=== PATIENT | female | born 1955 | race African-American/Black ===

== ENCOUNTER 2016-12-21 17:44 | Observation (INO) ==
[2016-12-21] MEDS ORDERED: KETOROLAC 30 MG/1 ML VIAL IM STA (18:25)
[2016-12-21] MEDS ORDERED: KETOROLAC 60 MG/2 ML VIAL IM ONE (18:42)
--- NOTE | 2016-12-21 18:44 | Emergency Department Note ---
ICirilo Mantricia, am scribing for, and in the presence of, Tiara Terrell DO 18:29. I, Tiara Terrell DO, personally performed the services described in this documentation, ascribed by Peri Kerr in my presence, and it is both accurate and complete [id number] . Arrival - Arrival Chief Complaint: Non-Specific Stated Complaint: dialysis port not working properly, bad pains in a ED Nursing Triage Note: c/o having pain in the left arm., states the pain is located at the dialysis access., states she feels like it is not working ., states the left arm is swollen and tender to the touch Mode of Arrival: Ambulatory Limitations: No Limitations Source: Patient Time Seen by Provider: 12/21/16 18:15 - History of Present Illness HPI Narrative: Pt is a 61 y/o black female arriving to ED by EMS for evaluation of pain in her LUE due to her catheter that onset yesterday. She states that she is on dialysis and has a catheter placed in her left arm. She became worried because she cannot hear it beating and it began to hurt and swell, she states. She reports that the catheter was placed by Dr. Valdes. Pt reports a similar incident once before but no pain was noted then. Pt dialyze again tomorrow. She reports no other complaints to ED. Onset (ago): hour(s) Allergies/Adverse Reactions: Allergies Allergy/AdvReac Type Severity Reaction Status Date / Time Sulfa (Sulfonamide Allergy HIVES Verified 12/21/16 17:50 Antibiotics) Home Medications: Home Medications Medication Instructions Recorded Confirmed Type Carvedilol [Coreg] 25 mg PO BID 11/04/14 12/21/16 History cloNIDine TAB [Catapres Tab] 0.1 mg PO BID 11/04/14 12/21/16 History amLODIPine [Norvasc] 10 mg PO QAM 03/14/15 12/21/16 History Dextromethorphan Polistirex 30 mg PO BID #1 bottle 07/17/16 12/21/16 Rx Cetirizine Tab [ZyrTEC Tab] 5 mg PO QAM 10/01/16 12/21/16 History Fluticasone 50 Mcg Nasal [place] 1 spray BOTH NARES QAM 12/21/16 12/21/16 History [Flonase Nasal [place]] Review of System - Review of System 12 point system: reviewed and no additional remarkable complaints except as stated - Review of System Constitutional: Absent: chills, diaphoresis, fever Eyes: Absent: discharge, pain Head/Ears/Nose/Throat: Absent: earache, epistaxis, nasal drainage Respiratory: Absent: cough, respiratory distress, wheezing Cardiovascular: Absent: chest pain, palpitations Gastrointestinal: Absent: abdominal pain, nausea, vomiting, diarrhea Genitourinary female: Absent: abnormal menses, dysuria Musculoskeletal: Present: arm pain (LUE due to catheter ). Absent: back pain, leg pain, neck pain Skin: Absent: rash, lesions Psychiatric: Absent: anxiety, depression Medical,Surgical,& Family Hx - Medical History Cardio: History of: Hypertension, [place] (5 years ago at [facility], catheterization was negative by report) Neurology: No history of: Seizures Rheumatology: History of;: Gout (past history), Rheumatoid Arthritis Renal: History of: Dialysis (thursday, thursday, thursday [facility]; dr MATA), Renal Failure (polycystic kidney disease) Gastrointestinal: History of: GI Problems (occasional nausea) Other: History of: Miscellaneous Medical Problems (LEFT AV GRAFT 08/21/15;) - Surgical History Cardiac Surgeries: Sugical HX of: Cardiac Catheterization (6-7 yrs ago) Neurologic Surgeries: Patient denies: Neurologic Surgery HEENT Surgeries: Surgical HX of: Thyroid Surgery (thyroidectomy partial) Reproductive Surgeries: Surgical HX of;: Section (x1), Tubal Ligation Orthopedic Surgeries: Patient denies;: Implanted Devices (left arm av graft) - Family History Family History: Reports;: Family Cancer (MOM COLON CANCER), Family Heart Disease (DAD [place]), Family Hypertension (DAD) - Social History Smoking Status: Never smoker Frequency of Alcohol Use: None Type of Drug Use: None Exam Vital Signs: Vital Signs Temperature 98.3 F 12/21/16 17:46 Pulse Rate 96 H 12/21/16 17:46 Respiratory Rate 16 12/21/16 17:46 Blood Pressure 178/111 12/21/16 17:46 O2 Sat by Pulse Oximetry 97 12/21/16 17:46 - General General appearance: alert, in no apparent distress, obese (morbidly ) - Head Head exam: Present: atraumatic, normocephalic, normal inspection - Eye Eye exam: Present: normal appearance, PERRL, EOMI - ENT ENT exam: Present: normal exam, normal oropharynx, mucous membranes moist, TM's normal bilaterally, normal external ear exam - Neck Neck exam: Present: normal inspection, full ROM, trachea midline. Absent: tenderness - Chest Chest inspection: Present: normal inspection, symmetric chest wall rise. Absent : tenderness - Respiratory Respiratory exam: Present: normal lung sounds bilaterally - Cardiovascular Cardiovascular exam: Present: regular rate, normal rhythm, normal heart sounds - Abdominal Exam Abdominal exam: Present: soft, normal bowel sounds. Absent: distention, tenderness, guarding, rebound - Extremities Exam Extremities exam: Present: full ROM, tenderness (mild tenderness to LUE catheter side), normal capillary refill. Absent: pedal edema - Back Exam Back exam: Present: normal inspection, full ROM. Absent: tenderness - Neurological Exam Neurological exam: Present: alert, oriented X3, CN II-XII intact, normal gait, reflexes normal - Psychiatric Psychiatric exam: Present: normal affect, normal mood - Skin Skin exam: Present: warm, dry, intact, normal color Course Course Narrative: spoke with DR Hdez for DR Sal. pt to be admitted to [facility] with consult to sx and radiology for declotting dialysis catheter Disposition Clinical Impression: AV graft thrombosis Case discussed with: patient Disposition: Still a Patient Condition: Stable Time of Disposition: 18:52
[2016-12-21] MEDS ORDERED: ACETAMINOPHEN 325 MG TABLET PO PRN (18:53)
[2016-12-21] MEDS ORDERED: HYDROmorphone 2 MG/1 ML VIAL IV PRN (18:53)
[2016-12-21] MEDS ORDERED: ONDANSETRON 4 MG/2 ML VIAL IV PRN (18:53)
--- NOTE | 2016-12-21 20:00 | Ultrasound Report ---
US venous doppler UE LT Clinical Information: access patency of dialysis access Comparison: Fistulagram 10/29/2016 Findings: Targeted u/s evaluation of the left arm AV graft demonstrates thrombus and no color flow in the graft, compatible with thrombosis. Impression: As above. PROCEDURE INTERPRETED AT [facility] DEPARTMENT OF RADIOLOGY Final Report Signed by: Willy Pickering
[2016-12-21] MEDS: DOCUSATE SODIUM 100 MG CAPSULE PO SCH (21:54)
[2016-12-22] MEDS ORDERED: PANTOPRAZOLE 40 MG TABLET PO SCH (09:00)
[2016-12-22] MEDS ORDERED: CETIRIZINE 5 MG TABLET PO SCH (09:00)
[2016-12-22] MEDS ORDERED: CARVEDILOL 25 MG TABLET PO SCH (09:00)
[2016-12-22] MEDS ORDERED: HEPARIN 1,000 UNIT/1 ML VIAL ONE (09:14)
--- NOTE | 2016-12-22 09:14 | Hospitalist History & Physical ---
<Placido Grossman - Last Filed: 12/22/16 09:03> Assessment and Plan - Time spent with patient Time spent with patient: Greater than 30 minutes (1) AV graft thrombosis Status: Acute Assessment and plan: Patient is a hemodialysis patient her last dialyzed on Thursday with no problems. Reports pain in left upper extremity. There is no thrill noted in the AV graft site. Dr. Willy Pickering, interventional radiology, has been consulted for declotting evaluation. CBC, BMP, Mg has been ordered stat. Current Visit: Yes (2) Hypertension Status: Acute Assessment and plan: Patient's last BP was 144/84. Patient has not taken her blood pressure medication today. She reports she takes Coreg, clonidine, Norvasc. Patient is currently n.p.o. however she should be allowed to take her hypertensive medications with water this morning. Current Visit: Yes (3) Polycystic kidney disease Status: Acute Assessment and plan: Patient is currently on hemodialysis for CKD secondary to polycystic kidney disease. BMP is pending. Current Visit: No History of Present Illness Chief complaint: left arm pain History of present illness: Ms. Mendez is a 61 year old -[place] female with a past medical history significant for polycystic kidney disease on hemodialysis, hypertension who presented to the emergency room on yesterday with complaints of left arm pain around her AV graft with an onset Thursday night. The patient reports that she dialyzes here [place] on Wednesdays and Fridays and was last dialyzed on Thursday. She reports that the pulled 2800 cc no complications. She states that she began feeling pain in her left arm on Thursday night which progressed through Thursday morning. She took Tylenol and Aleve with little relief. She then came to the emergency room for further treatment. Patient reports that she has been dialyzing for 2 years and has had complications with her graft in the past. She was last seen by interventional radiology approximately 1 month ago at which time a stent was placed in her graft. Patient rates the pain in her arm a 6/10 but denies any other complaints or problems at this time. Patient was erroneously admitted to the family medicine service last night. She has not yet gotten any lab work done. I will order a CBC, BMP and Mg stat prior to interventional radiology and surgery seeing her. I have spoken with Dr. Pickering, interventional radiology, who has agreed to see the patient for possible declotting of her graft. Case has been discussed with Dr. Kelly. Patient is a full code. Home Medications Medication Instructions Recorded Confirmed Type Carvedilol [Coreg] 25 mg PO BID 11/04/14 12/21/16 History cloNIDine TAB [Catapres Tab] 0.1 mg PO BID 11/04/14 12/21/16 History amLODIPine [Norvasc] 10 mg PO QAM 03/14/15 12/21/16 History Cetirizine Tab [ZyrTEC Tab] 5 mg PO QAM 10/01/16 12/21/16 History Fluticasone 50 Mcg Nasal [place] 1 spray BOTH NARES QAM 12/21/16 12/21/16 History [Flonase Nasal [place]] Allergies Allergy/AdvReac Type Severity Reaction Status Date / Time Sulfa (Sulfonamide Allergy HIVES Verified 12/21/16 17:50 Antibiotics) Medical,Surgical,& Family Hx - Medical History Cardio: History of: Hypertension, [place] (5 years ago at [facility], catheterization was negative by report) Neurology: No history of: Seizures Rheumatology: History of;: Gout (past history), Rheumatoid Arthritis Renal: History of: Dialysis (thursday, thursday, thursday [facility]; dr MATA), Renal Failure (polycystic kidney disease) Gastrointestinal: History of: GI Problems (occasional nausea) Other: History of: Miscellaneous Medical Problems (LEFT AV GRAFT 08/21/15;) - Surgical History Cardiac Surgeries: Sugical HX of: Cardiac Catheterization (6-7 yrs ago) Neurologic Surgeries: Patient denies: Neurologic Surgery HEENT Surgeries: Surgical HX of: Thyroid Surgery (thyroidectomy partial) Reproductive Surgeries: Surgical HX of;: Section (x1), Tubal Ligation Orthopedic Surgeries: Patient denies;: Implanted Devices (left arm av graft) - Family History Family History: Reports;: Family Cancer (MOM COLON CANCER), Family Heart Disease (DAD [place]), Family Hypertension (DAD) - Social History Smoking Status: Never smoker Frequency of Alcohol Use: None Type of Drug Use: None Marital Status: Single Lives With:: Alone Functional capacity: independent ambulation - Constitutional Constitutional: Absent: fever(s), headache(s), weakness - EENT Eyes: Absent: blurry vision, loss of vision Ears: Absent: decreased hearing, ear pain Nose, mouth and throat: Absent: headache(s), sore throat, vertigo - Cardiovascular Cardiovascular: Absent: chest pain at rest, diaphoresis, dyspnea - Respiratory Respiratory: Absent: cough, wheezing - Gastrointestinal Gastrointestinal: Absent: abdominal pain, diarrhea, nausea, vomiting - Genitourinary Genitourinary: Absent: difficulty urinating, flank pain - Musculoskeletal Musculoskeletal: Present: other (left arm pain) - Neurological Neurological: Absent: numbness, paresthesias - Psychiatric Psychiatric: Absent: anxiety, depression - Endocrine Endocrine: Absent: cold intolerance, fatigue, heat intolerance - Hematologic/Lymphatic Hematologic/Lymphatic: Absent: easy bleeding, easy bruising Exam - Constitutional Vitals: Period Temp Pulse Resp BP Sys/Briones Pulse Ox Last 24 Hr 97.6 F-98.5 F 86-96 14-20 119-178/84-111 96-100 Exam: General appearance: morbidly obese, no acute distress - Head Head exam: Present: normocephalic, atraumatic - Eye Eye exam: Present: EOMI. Absent: conjunctival injection, nystagmus Pupils: Present: ANTHONY, normal accommodation - ENT ENT exam: Present: normal exam, normal external ear exam - Neck Neck exam: Present: normal inspection. Absent: lymphadenopathy, tenderness, thyromegaly - Respiratory Respiratory exam: Present: clear to auscultation bilaterally. Absent: rales, rhonchi, wheezes - Cardiovascular Cardiovascular exam: Present: regular rate and rhythm. Absent: carotid bruit, gallop, rubs - GI/Abdominal GI/Abdominal exam: Present: normal bowel sounds. Absent: ascites, distended, mass - Extremities Exam Extremities exam: Present: Ecchymosis LUE, no thrill at AV graft site - Back Exam Back exam: Absent: CVA tenderness (L), CVA tenderness (R) - Neurological Exam Neurological exam: Present: alert, oriented X3 - Psychiatric Psychiatric exam: Present: normal affect, normal mood - Skin Skin exam: Present: normal color, warm, dry Results - Labs Labs: CBC, BMP and Mg are pending <Holyl Kelly - Last Filed: 12/22/16 11:45> Assessment and Plan (1) AV graft thrombosis Problem details: last intervention 10/29/2016. She has a history of multiple similar issues with graft clotting in the past. Status: Acute Current Visit : Yes (2) Hypertension Status: Acute Current Visit: Yes History of Present Illness History of present illness: Ms. Mendez is a 61 year old female seen and examined. Exam - Constitutional Vitals: Period Temp Pulse Resp BP Sys/Briones Pulse Ox Last 24 Hr 97.2 F-98.5 F 81-96 14-20 119-211/77-111 96-100 Exam: no thrill over graft Results - Labs CBC & BMP: 12/22/16 09:16 12/22/16 09:16 Lab Results: I have reviewed the past 24 hour labs - Diagnostic Findings Procedure: Ultrasound: report reviewed by me (clot in av graft )
[2016-12-22 09:23] LABS: Basophils % 0.4 % (0.0-0.8); Eosinophils # 0.3 10*3/uL (0.0-0.87); Eosinophils % 2.6 % (0.00-10.9); Hematocrit 36.6 VOL% (35.7-47.0); Hemoglobin 11.8 GM/DL (12.0-16.0); Immature Granulocytes % 0.7 %; Immature Granulocytes Absolute 0.07 #; Lymphocytes # 2.1 10*3/uL (1.4-4.0); Lymphocytes % 19.7 % (21.3-54.2); Mean Corpuscular HGB Conc 32.2 GM/DL (32-36); Mean Corpuscular Hemoglobin 30 PG (27-34); Mean Corpuscular Volume 91.7 FL (87-102); Mean Platelet Volume 11.2 FL (9.6-12.0); Monocytes # 0.8 10*3/uL (0.11-0.8); Monocytes % 7.3 % (1.7-12.7); Neutrophils # 7.4 10*3/uL (1.4-7.4); Neutrophils % 69.3 % (38.7-73.9); Platelet Count 155 T/CUMM (130-400); Red Blood Count 3.99 MC/CUMM (3.8-5.5); Red Cell Distribution Width 15.2 % (9.3-17.3); White Blood Count 10.6 T/CUMM (4-12)
--- NOTE | 2016-12-22 09:34 | IR History and Physical Update ---
IR Pre-Procedure - History and Physical H&P was reviewed, the patient examined and there: are no changes in the patients condition since last H&P was completed. Reason for procedure:: clotted left arm HD AV graft - Dictation Physical: refer to H&P completed by admitting physician - Physical Exam Vital Signs: Last Vital Signs Temp 97.6 F 12/22/16 04:00 Pulse 86 12/22/16 04:00 Resp 20 12/22/16 04:00 BP 144/84 12/22/16 04:00 Pulse Ox 96 12/22/16 04:00 Mental Status: alert and oriented Heart: regular rate and rhythm Lung: clear to auscultation Abdomen: within normal limits Extremity: other (left arm swollen, no erythema or drainage) Extremity: Present: capillary refill less than 3 seconds, warm, dry to touch - Sedation IR anesthesia plan for sedation: none ASA Class: II Airway Assessment: Class IV: Only hard palate visible - Risks Risks: Procedures explained. Risks discussed include, but not limited to, the following:[bleeding, infection, injury to vessel, need for further surgery ] All questions answered. The following alternatives were discussed:[ place HD catheter and abandon the graft] Risks and benefits discussed with: patient Consent obtained from: patient Assessment and Plan - Time spent with patient Time spent with patient: Less than 30 minutes (1) AV graft thrombosis Problem details: last intervention 10/29/2016. She has a history of multiple similar issues with graft clotting in the past. Status: Acute Assessment and plan: will decot the graft today, if unsuccessful will place HD catheter for dialysis access Current Visit: Yes (2) End stage renal disease on dialysis Problem details: HD today. D/C home afterwards. F/U outpt HD unit for routine CHD on Thursday. Status: Chronic Current Visit: No
[2016-12-22 09:58] LABS: Calcium 8.4 MG/DL (8.5-10.1); Magnesium 2.3 MG/DL (1.8-2.4); Osmolality,Calculated 294.4 MOS/KG (273-304); Potassium 4.7 MMOL/L (3.5-5.1)
--- NOTE | 2016-12-22 11:33 | Discharge Summary ---
Hospital Course - Hospital Course Hospital Course: Ms. Mendez is a 61 year old -[place] female with a past medical history significant for polycystic kidney disease on hemodialysis, hypertension who presented to the emergency room on yesterday with complaints of left arm pain around her AV graft with an onset Thursday night. The patient reports that she dialyzes here in [place] on Wednesdays and Fridays and was last dialyzed on Thursday. She reports that the pulled 2800 cc no complications. She states that she began feeling pain in her left arm on Thursday night which progressed through Thursday morning. Her graft was noted to be clotted with thrombus on venous dopplers. She has had multiple problems with this graft. IR was consulted and the graft was declotted today by Dr. Pickering. Patient will be dialyzed today and discharged home. - Time spent with patient Time with patient DS: Less than 30 minutes (15 min) Discharge Plan - Discharge Data Disposition: Disch To Home/Self Care Condition at Discharge: Stable Discharge Diet: other (esrd) Activity: resume usual activities as tolerated Hygiene: no restrictions Weight Bearing at Discharge: full weight bearing - Discharge Medications Continue Carvedilol [Coreg] 25 mg PO BID cloNIDine TAB [Catapres Tab] 0.1 mg PO BID amLODIPine [Norvasc] 10 mg PO QAM Fluticasone 50 Mcg Nasal [place] [Flonase Nasal [place]] 1 spray BOTH NARES QAM Cetirizine Tab [ZyrTEC Tab] 5 mg PO QAM Discontinued Dextromethorphan Polistirex 30 mg PO BID #1 bottle - Follow Up or Referral Follow Up: Bradley Denton MD [Physician] - (Dialysis thursday, thu, thursday ) - Forms/Instructions Additional Discharge Instructions: discharged after dialysis today. remove stitches at dialysis on thursday. Exam - Constitutional Vitals: Period Temp Pulse Resp BP Sys/Briones Pulse Ox Last 24 Hr 97.2 F-98.5 F 81-96 14-20 119-211/77-111 96-100 General appearance: no acute distress, morbidly obese Exam: see History and physical today Discharge Results Procedures and tests throughout hospitalization: Pending Orders 12/22/16 08:51 IR Dialysis declot w Stent Routine Labs on day of discharge: Labs from last 24 hours 12/22/16 12/22/16 09:16 09:16 WBC 10.6 RBC 3.99 Hgb 11.8 L Hct 36.6 MCV 91.7 MCH 30 MCHC 32.2 RDW 15.2 Plt Count 155 MPV 11.2 Neut % (Auto) 69.3 Lymph % (Auto) 19.7 L Barron % (Auto) 7.3 Eos % (Auto) 2.6 Baso % (Auto) 0.4 Neut # (Auto) 7.4 Lymph # (Auto) 2.1 Barron # (Auto) 0.8 Eos # (Auto) 0.3 Baso # (Auto) 0.0 Immature Gran % 0.7 Nucleated RBC % 0.0 Immature Gran # 0.07 Nucleated RBCs # 0.00 Sodium 140 Potassium 4.7 Chloride 101 Carbon Dioxide 24 Anion Gap 19.7 H BUN 58 H Creatinine 10.80 H GFR Calculation 5 BUN/Creatinine Ratio 5.00 L Glucose 97 Calculated Osmolality 294.4 Calcium 8.4 L Magnesium 2.3 DS: Provider Date of admission: 12/21/16 19:00 Primary care physician: Ammy Chavez Attending physician on admission: Prosper Sal MD Consults: 12/21/16 18:53 Consult to Case Mgmt/Social Srvs [CONS] Routine Reason for Case Mgmt/Social Srvs: Discharge Planning 12/21/16 18:57 Consult to Physician [CONS] Routine Comment: Consulting Provider: Yfn Valdes When should Consulting Provider be notified: In am Person Notified: MD SOLITARIO Date Notified: 12/22/16 Time Notified: 08:55 Consult Notification Comment: clogged dialysis graft 12/21/16 19:00 Consult to Case Mgmt/Social Srvs [CONS] Routine Reason for Case Mgmt/Social Srvs: Discharge Planning 12/22/16 11:29 Consult to Physician [CONS] Routine Comment: Consulting Provider: Bradley Denton Person Notified: Svetlana Date Notified: 12/22/16 Time Notified: 11:30 Consult to Physician [CONS] Routine Consulting Provider: Bradley Denton Comment: dialysis today Discharging clinician: Holly Kelly MD
[2016-12-22] MEDS: DOCUSATE SODIUM 100 MG CAPSULE PO SCH (11:35)
[2016-12-22] MEDS: FLUTICASONE 50 MCG NASAL SPRAY 16 GM BOTTLE BOTH NARES SCH ×2 (11:42→13:46)
--- NOTE | 2016-12-22 12:06 | Post Interventional Procedure ---
Pre-op diagnosis: clotted left arm AV graft Post-op diagnosis: same Procedure: declot procedure with angioplasty and stenting Contrast: 50 mL Omni 350 Flouroscopy: 7.8 min Radiologist: Willy Pickering Anesthesia: local Specimens: none sent Estimated blood loss: minimal (5 mL) Complications: none Condition: stable Description/Findings: Left arm dialysis graft is noted to be clotted. Preprocedural ultrasound performed via the ER demonstrates thrombus within the graft. Graft was accessed and pullback venogram demonstrates severe stenosis at the previously placed endovascular stent in the arm. Indwelling thrombus was macerated with heparin flush and Trerotola device. Angioplasty performed at the venous outflow with subsequent placement of a 7 x 80 mm covered fluency stent graft to straighten out the outflow. The stent graft was then angioplastied with a 7 mm balloon throughout. Final venogram demonstrates brisk drainage through the graft. Arterial anastomosis is widely patent. Patient tolerated the procedure well and left the procedure area in stable condition. 2-0 Prolene purse string sutures were placed at both puncture sites. These can be removed at the 12/24/2016 dialysis session. Assessment and Plan - Time spent with patient Time spent with patient: Less than 30 minutes (1) AV graft thrombosis Problem details: last intervention 10/29/2016. She has a history of multiple similar issues with graft clotting in the past. Status: Acute Assessment and plan: will decot the graft today, if unsuccessful will place HD catheter for dialysis access Current Visit: Yes (2) End stage renal disease on dialysis Problem details: HD today. D/C home afterwards. F/U outpt HD unit for routine CHD on Thursday. Status: Chronic Current Visit: No
--- NOTE | 2016-12-22 12:14 | Nephrology Consult Note ---
History of Present Illness Chief complaint: Clotted AV access History of present illness: Ms. Mendez is a 61 year old female with end-stage renal disease who dialyzes on a Thursdayidian. The patient presented to the dialysis clinic today for hemodialysis but was found to be clotted in her left arm. She is subsequently transferred to the hospital here for further evaluation and treatment. The patient had a declot of her arm done successfully today she also required a stent. The patient stated she had some occasional chest pain last night and this morning. She describes it as lasting a little more than 5 seconds and comes and goes. She denies any associated shortness of breath. She does have a history of some heart disease in the past. ROS: Head -positive headaches ENT - denies sore throat Lymphatics - denies lymphadenopathy Hematology - denies bleeding problems Heart -positive chest pain Lungs - denies shortness of breath Abdomen - denies abdominal pain Musculoskeletal - denies arthritis Skin - denies rash Neurology - denies stroke General - denies fever PE: General: in no acute distress Eyes: Pupils are round and reactive, conjunctivae are clear ENT: Nose is clear, O/P is benign Neck: Supple, no thyromegaly Lymphatics: No cervical, supraclavicular or axillary adenopathy Heart: Regular rate and rhythm, no edema Lungs: Clear to auscultation anteriorly, chest expansion symmetric Abdomen: Soft, normoactive bowel sounds, no hepatomegaly Musculoskeletal: No joint erythema or effusions or joint asymmetry Skin: Normal turgor, normal hydration, no rash Neuro/Psych: Alert and cooperative with fair insight Home Medications Medication Instructions Recorded Confirmed Type Carvedilol [Coreg] 25 mg PO BID 11/04/14 12/21/16 History cloNIDine TAB [Catapres Tab] 0.1 mg PO BID 11/04/14 12/21/16 History amLODIPine [Norvasc] 10 mg PO QAM 03/14/15 12/21/16 History Cetirizine Tab [ZyrTEC Tab] 5 mg PO QAM 10/01/16 12/21/16 History Fluticasone 50 Mcg Nasal [place] 1 spray BOTH NARES QAM 12/21/16 12/21/16 History [Flonase Nasal [place]] Allergies Allergy/AdvReac Type Severity Reaction Status Date / Time Sulfa (Sulfonamide Allergy HIVES Verified 12/21/16 17:50 Antibiotics) Medical,Surgical,& Family Hx - Medical History Cardio: History of: Hypertension, [place] (5 years ago at [place], catheterization was negative by report) Neurology: No history of: Seizures Rheumatology: History of;: Gout (past history), Rheumatoid Arthritis Renal: History of: Dialysis (thursday, thursday, thursday marivel; dr MATA), Renal Failure (polycystic kidney disease) Gastrointestinal: History of: GI Problems (occasional nausea) Other: History of: Miscellaneous Medical Problems (LEFT AV GRAFT 08/21/15;) - Surgical History Cardiac Surgeries: Sugical HX of: Cardiac Catheterization (6-7 yrs ago) Neurologic Surgeries: Patient denies: Neurologic Surgery HEENT Surgeries: Surgical HX of: Thyroid Surgery (thyroidectomy partial) Reproductive Surgeries: Surgical HX of;: Section (x1), Tubal Ligation Orthopedic Surgeries: Patient denies;: Implanted Devices (left arm av graft) - Family History Family History: Reports;: Family Cancer (MOM COLON CANCER), Family Heart Disease (DAD [place]), Family Hypertension (DAD) - Social History Smoking Status: Never smoker Frequency of Alcohol Use: None Type of Drug Use: None Exam - Vital Signs Vital signs: Period Temp Pulse Resp BP Sys/Briones Pulse Ox Last 24 Hr 97.2 F-98.5 F 81-96 14-20 119-211/77-111 96-100 Results - Labs CBC & BMP: 12/22/16 09:16 12/22/16 09:16 Assessment and Plan (1) End stage renal disease on dialysis Problem details: HD today. D/C home afterwards. F/U outpt HD unit for routine CHD on Thursday. Status: Chronic Assessment and plan: We will plan on hemodialysis today, the patient's AV access has been successfully declotted, she did require what sounds like a stent placement in this arm Current Visit: No (2) Obesity Status: Acute Current Visit: Yes (3) Chest pain Status: Acute Assessment and plan: Sounds like very atypical chest pain and unimpressive history however with her previous problems we will check a set of cardiac isoenzymes and EKG. This was discussed with Dr. Kelly. Current Visit: Yes (4) AV graft thrombosis Problem details: last intervention 10/29/2016. She has a history of multiple similar issues with graft clotting in the past. Status: Acute Assessment and plan: I agree with discharge after dialysis if patient remains stable and isoenzymes and EKG look okay. Current Visit: Yes (5) Hypertension Status: Acute Assessment and plan: We will continue her present antihypertensives Current Visit: Yes Specialty Discharge - Follow Up or Referrals Follow up with: Bradley Denton MD [Physician] - (Dialysis thursday, thu, thursday )
--- NOTE | 2016-12-22 12:16 | Interventional Radiology Rpt ---
IR Dialysis declot w Stent IR Declot Clinical Information: End stage renal disease. Thrombosed dialysis graft. Multiple prior episodes of thrombosis within the graft with subsequent initial endovascular stent placement October 29, 2016. Patient returns now with rethrombosis of the graft. Physician(s): Dr. Pickering Total number of images for the procedure: 188 Procedure: The patient was advised of the benefits, risks, and alternatives of the procedure and informed consent was obtained. A time out was performed with verification of the patient's name, MRN, site of procedure, and type of procedure to be performed. The patient was positioned in the supine position on the angiographic table. The site was prepped and draped in the usual sterile fashion. 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 2% lidocaine was used for local anesthesia. An antegrade puncture was made close to the arterial anastomosis with a micropuncture set. A glidewire was passed centrally and a 6 Maur[place] short sheath placed. A 4 [place] straight flush catheter was advanced over the wire into the central veins. A central venogram was then performed demonstrating patent, normal caliber central veins. A pull-back venogram of the venous outflow and venous anastomosis demonstrates a thrombosed left arm AV graft with the suggestion of venous outflow stenosis. Stenosis is primarily at the level of the previously placed endovascular stent with some kinking also noted. Angioplasty of the venous outflow was performed using a 7 mm x 4 cm [place] angioplasty balloon. Following angioplasty, a Trerotola device with heparin flush was used to macerate the thrombus. The graft was then accessed in a retrograde direction and an additional 6 Maur[place] short sheath placed. A Glidewire was advanced through the retrograde sheath and into the brachial artery. A Tash balloon was passed over the Glidewire into the arterial circulation, inflated and retracted under fluoroscopic guidance to disrupt the arterial plug. This was repeated 2 additional times. At this point physical exam indicated the graft was patent. A small volume fistulogram confirmed patency. An antegrade fistulogram was then performed demonstrating persistent moderate (70-75%) stenosis and kinking at the previously placed endovascular stent. A [employer] wire was reinserted through the antegrade sheath and 7 x 80 fluency stent graft was then advanced through the previously placed endovascular stent and deployed without difficulty. Subsequently, angioplasty with a 7 mm balloon was again performed throughout the needle placed stent. Repeat fistulogram demonstrates widely patent brisk drainage through the graft. A reflux fistulogram was performed demonstrating a widely patent arterial anastomosis. Given the satisfactory pressures and improved appearance of the AV graft, no further intervention was indicated. All wires, catheters, and angioplasty balloons were removed. The patient was transferred to the PRU where the sheaths will be removed using manual pressure for hemostasis. The patient tolerated the procedure well without immediate complication. The puncture site was cleansed. The sheath was secured to the skin using a sterile Tegaderm, to be removed in the PRU during recovery. EBL: <5 ml Complications: None. Total fluoroscopy time: 7.8 minutes Conclusion: 1. Successful mechanical thrombectomy of a left upper extremity dialysis AV graft. 2. Successful 7 mm covered fluency endovascular stent placement and venous angioplasty to 7 mm. PROCEDURE INTERPRETED AT [facility] DEPARTMENT OF RADIOLOGY Final Report Signed by: Willy Pickering
--- NOTE | 2016-12-22 12:18 | EKG Report ---
Stationary ECG Study [facility] Test Date: 12/22/2016 12:18:34 PM Pat Name: KATELYNN GUERRIER Department: Room: 539 Gender: F [facility] Pract[employer]er: LUIGI : 1955 Requested by: Holly Garcia Order Number: [id number] Lucy MD: NEFTALI THOMASON Intervals Rush Rate: 89 P: 55 TX: 154 QRS: 2 QRSD: 78 T: 43 QT: 352 QTc: 399 Interpretive Statements SINUS RHYTHM POSSIBLE ANTERIOR MYOCARDIAL INFARCTION, OF INDETERMINATE AGE Electronically Signed On 12-24-16 17:00:15 CDT by NEFTALI THOMASON [email or web address]
--- NOTE | 2016-12-22 13:19 | Nephrology Progress Note ---
Nephrology - PN: Subj Interval history: Patient is seen on hemodialysis, she is tolerating this well will continue her treatment unchanged. The patient does complain of a continued headache. I am going to give her an [place]. Exam (PN)-Nephrology - Vital Signs Vital signs: Period Temp Pulse Resp BP Sys/Briones Pulse Ox Last 24 Hr 97.2 F-98.5 F 81-96 14-20 119-211/77-111 96-100 - Lab 12/22/16 09:16 12/22/16 09:16 Most recent lab results Calcium 8.4 MG/DL (8.5-10.1) L 12/22/16 09:16 Magnesium 2.3 MG/DL (1.8-2.4) 12/22/16 09:16 Assessment and Plan (1) End stage renal disease on dialysis Problem details: HD today. D/C home afterwards. F/U outpt HD unit for routine CHD on Thursday. Status: Chronic Assessment and plan: We will plan on hemodialysis today, the patient's AV access has been successfully declotted, she did require what sounds like a stent placement in this arm Current Visit: No (2) Obesity Status: Acute Current Visit: Yes (3) Chest pain Status: Acute Assessment and plan: Sounds like very atypical chest pain and unimpressive history however with her previous problems we will check a set of cardiac isoenzymes and EKG. This was discussed with Dr. Kelly. Current Visit: Yes (4) AV graft thrombosis Problem details: last intervention 10/29/2016. She has a history of multiple similar issues with graft clotting in the past. Status: Acute Assessment and plan: I agree with discharge after dialysis if patient remains stable and isoenzymes and EKG look okay. Current Visit: Yes (5) Hypertension Status: Acute Assessment and plan: We will continue her present antihypertensives Current Visit: Yes Specialty Discharge - Follow Up or Referrals Follow up with: Bradley Denton MD [Physician] - (Dialysis thursday, thu, thursday )
--- NOTE | 2016-12-22 13:32 | General Surgery Consult Note ---
Assessment and Plan (1) AV graft thrombosis Problem details: last intervention 10/29/2016. She has a history of multiple similar issues with graft clotting in the past. Status: Acute Assessment and plan: Patient underwent mechanical thrombectomy with stent placement this morning. Hopefully this will provide longer patency. Discussed with the family and the patient at bedside that she will likely require intervention to gain a different access in the very near future. We will follow along and are available. Current Visit: Yes History of Present Illness Chief complaint: AV fistula thrombosis History of present illness: Ms. Mendez is a 61 year old female with end-stage renal disease secondary to polycystic kidney disease on hemodialysis Thursday was and Thursday. She had a left AV fistula placed in the upper extremity August [address] Valdes. There are no issues noted until September 2016, and since the fistula now with his fourth thromboses. Patient has undergone one surgical declot with Dr. Harkins and underwent third interventional radiology intervention today. The patient notes that she began having pain in the left upper extremity beginning Thursday which worsened since Thursday associated with loss of thrill at the fistula site. She came to the emergency department for evaluation where the thrombosis was identified. She underwent mechanical thrombectomy with stent placement this morning. The patient was beginning dialysis the time of our evaluation. Home Medications Medication Instructions Recorded Confirmed Type Carvedilol [Coreg] 25 mg PO BID 11/04/14 12/21/16 History cloNIDine TAB [Catapres Tab] 0.1 mg PO BID 11/04/14 12/21/16 History amLODIPine [Norvasc] 10 mg PO QAM 03/14/15 12/21/16 History Cetirizine Tab [ZyrTEC Tab] 5 mg PO QAM 10/01/16 12/21/16 History Fluticasone 50 Mcg Nasal [place] 1 spray BOTH NARES QAM 12/21/16 12/21/16 History [Flonase Nasal [place]] Allergies Allergy/AdvReac Type Severity Reaction Status Date / Time Sulfa (Sulfonamide Allergy HIVES Verified 12/21/16 17:50 Antibiotics) Medical,Surgical,& Family Hx - Medical History Cardio: History of: Hypertension, [place] (5 years ago at [place], catheterization was negative by report) Neurology: No history of: Seizures Rheumatology: History of;: Gout (past history), Rheumatoid Arthritis Renal: History of: Dialysis (thursday, thursday, thursday marivel; dr MATA), Renal Failure (polycystic kidney disease) Gastrointestinal: History of: GI Problems (occasional nausea) Other: History of: Miscellaneous Medical Problems (LEFT AV GRAFT 08/21/15;) - Surgical History Cardiac Surgeries: Sugical HX of: Cardiac Catheterization (6-7 yrs ago) Neurologic Surgeries: Patient denies: Neurologic Surgery HEENT Surgeries: Surgical HX of: Thyroid Surgery (thyroidectomy partial) Reproductive Surgeries: Surgical HX of;: Section (x1), Tubal Ligation Orthopedic Surgeries: Patient denies;: Implanted Devices (left arm av graft) - Family History Family History: Reports;: Family Cancer (MOM COLON CANCER), Family Heart Disease (DAD [place]), Family Hypertension (DAD) - Social History Smoking Status: Never smoker Frequency of Alcohol Use: None Type of Drug Use: None - Constitutional Constitutional: Absent: chills, fatigue, fever(s) - Cardiovascular Cardiovascular: Absent: chest pain at rest, chest pain with activity, orthopnea - Respiratory Respiratory: Absent: cough, wheezing - Gastrointestinal Gastrointestinal: Absent: abdominal pain, diarrhea, nausea, vomiting - Musculoskeletal Musculoskeletal: Absent: arthralgias Exam - Constitutional Vitals: Period Temp Pulse Resp BP Sys/Briones Pulse Ox Last 24 Hr 97.2 F-98.5 F 81-96 14-20 119-211/77-111 96-100 General appearance: no acute distress - Head Head exam: Present: normal inspection - Eye Eye exam: Absent: conjunctival injection, periorbital swelling, scleral icterus - Neck Neck exam: Present: trachea midline - Respiratory Respiratory exam: Present: clear to auscultation bilaterally - Cardiovascular Cardiovascular exam: Present: RRR - GI/Abdominal GI/Abdominal exam: Present: normal bowel sounds, soft. Absent: tenderness Results - Labs CBC & BMP: 12/22/16 09:16 12/22/16 09:16 Specialty Discharge - Follow Up or Referrals Follow up with: Bradley Denton MD [Physician] - (Dialysis thursday, thu, thursday )
[2016-12-22 13:58] LABS: Troponin I Only 0.052 NG/ML (0.00-0.045)
[2016-12-22 14:28] VITALS: BP 167/84
== END 2016-12-22 17:55 | disposition home or self-care (01) ==
LOC: N.ED 17:44 → N.EDINP 17:44 → N.5E 19:26
PROVIDERS: ADMIT Family Medicine; ATTEND Family Medicine

== ENCOUNTER 2017-05-06 12:14 | Inpatient (IN) ==
[2017-05-06] MEDS ORDERED: ASPIRIN 325 MG TABLET PO STA (12:34)
[2017-05-06] MEDS ORDERED: METOPROLOL TARTRATE 5 MG/5 ML VIAL IV STA (12:34)
[2017-05-06] MEDS ORDERED: NITROGLYCERIN 2% OINT 1 INCH/GM PACK TOP STA (12:34)
[2017-05-06] MEDS ORDERED: NITROGLYCERIN SL 0.4 MG TABLET SL PRN (12:34)
[2017-05-06 13:01] LABS: Basophils # 0.1 10*3/uL (0.0-0.2); Basophils % 0.5 % (0.0-0.8); Eosinophils # 0.3 10*3/uL (0.0-0.87); Eosinophils % 3.1 % (0.00-10.9); Hematocrit 36.9 VOL% (35.7-47.0); Hemoglobin 12.2 GM/DL (12.0-16.0); Immature Granulocytes % 0.4 %; Immature Granulocytes Absolute 0.04 #; Lymphocytes # 2.1 10*3/uL (1.4-4.0); Lymphocytes % 22.6 % (21.3-54.2); Mean Corpuscular HGB Conc 33.1 GM/DL (32-36); Mean Corpuscular Hemoglobin 29 PG (27-34); Mean Corpuscular Volume 87.4 FL (87-102); Mean Platelet Volume 12.1 FL (9.6-12.0); Monocytes # 0.4 10*3/uL (0.11-0.8); Monocytes % 4.8 % (1.7-12.7); Neutrophils # 6.3 10*3/uL (1.4-7.4); Neutrophils % 68.6 % (38.7-73.9); Platelet Count 189 T/CUMM (130-400); Red Blood Count 4.22 MC/CUMM (3.8-5.5); Red Cell Distribution Width 14.3 % (9.3-17.3); White Blood Count 9.2 T/CUMM (4-12)
[2017-05-06] MEDS ORDERED: ASPIRIN 325 MG TABLET ONE (13:01)
[2017-05-06] MEDS ORDERED: NITROGLYCERIN 2% OINT 1 INCH/GM PACK TOP ONE (13:01)
[2017-05-06 13:11] LABS: PT Patient Result 10.7 SECS
[2017-05-06 13:15] LABS: Partial Thromboplastin Time 63.9 SECS (0-40)
[2017-05-06 14:06] LABS: Alanine Aminotransferase 15 U/L (13-56); Albumin 3.3 G/DL (3.4-5.0); Alkaline Phosphatase 69 U/L (45-117); Aspartate Amino Transferase 16 U/L (0-37); Bilirubin,Total < 0.39 MG/DL (0.2-1.0); Blood Urea Nitrogen 16 MG/DL (7-18); Calcium 10.5 MG/DL (8.5-10.1); Glucose 96 MG/DL (74-106); Osmolality,Calculated 281.3 MOS/KG (273-304); Potassium 3.7 MMOL/L (3.5-5.1); Sodium 141 MMOL/L (136-145); Total Protein 7.1 G/DL (6.4-8.3)
[2017-05-06] MEDS ORDERED: NITROGLYCERIN SL 0.4 MG TABLET SL ONE (14:23)
[2017-05-06] MEDS ORDERED: ZALEPLON 5 MG CAPSULE PO PRN (15:12)
[2017-05-06] MEDS ORDERED: DOCUSATE SODIUM 100 MG CAPSULE PO PRN (15:12)
[2017-05-06] MEDS ORDERED: FLUTICASONE 50 MCG NASAL SPRAY 16 GM BOTTLE BOTH NARES PRN (15:16)
[2017-05-06] MEDS ORDERED: ENOXAPARIN 30 MG/0.3 ML SYRINGE ONE (15:38)
[2017-05-06] MEDS: ENOXAPARIN 30 MG/0.3 ML SYRINGE SUBCUT SCH (15:39)
[2017-05-06] MEDS: SUCROFERRIC OXYHYDROXIDE 1500 MG PO SCH (18:00)
[2017-05-06] MEDS: ACETAMINOPHEN 325 MG TABLET PO PRN ×2 (18:10→22:23)
[2017-05-06 19:31] LABS: Phosphorous 3.4 MG/DL (2.5-4.9)
[2017-05-06] MEDS: CARVEDILOL 25 MG TABLET PO SCH (20:38)
[2017-05-07] MEDS: CARVEDILOL 25 MG TABLET PO SCH ×2 (08:39→20:02)
[2017-05-07] MEDS: ONDANSETRON 4 MG/2 ML VIAL IV PRN (08:39)
[2017-05-07] MEDS: SUCROFERRIC OXYHYDROXIDE 1500 MG PO SCH ×3 (08:40→16:51)
[2017-05-07] MEDS: amLODIPine 10 MG TABLET PO SCH (08:40)
[2017-05-07 11:12] LABS: Risk Ratio 5.4; VLDL CHOLESTEROL 23.6 MG/DL
[2017-05-07] MEDS: hydrALAZINE 25 MG TABLET PO SCH ×2 (16:49→20:02)
[2017-05-07] MEDS: ISOSORBIDE DINITRATE 10 MG TABLET PO SCH ×2 (16:49→20:02)
[2017-05-07] MEDS: ENOXAPARIN 30 MG/0.3 ML SYRINGE SUBCUT SCH (16:50)
[2017-05-07] MEDS: ACETAMINOPHEN 325 MG TABLET PO PRN (22:09)
[2017-05-08] MEDS: ACETAMINOPHEN 325 MG TABLET PO PRN ×2 (05:07→08:56)
[2017-05-08] MEDS: ONDANSETRON 4 MG/2 ML VIAL IV PRN (05:08)
[2017-05-08 07:34] LABS: Basophils # 0.1 10*3/uL (0.0-0.2); Basophils % 0.8 % (0.0-0.8); Eosinophils # 0.3 10*3/uL (0.0-0.87); Eosinophils % 3.8 % (0.00-10.9); Hematocrit 32.9 VOL% (35.7-47.0); Hemoglobin 10.3 GM/DL (12.0-16.0); Immature Granulocytes % 0.3 %; Immature Granulocytes Absolute 0.02 #; Lymphocytes % 25.9 % (21.3-54.2); Mean Corpuscular HGB Conc 31.3 GM/DL (32-36); Mean Corpuscular Hemoglobin 29 PG (27-34); Mean Corpuscular Volume 90.9 FL (87-102); Mean Platelet Volume 13.1 FL (9.6-12.0); Monocytes # 0.6 10*3/uL (0.11-0.8); Monocytes % 8.3 % (1.7-12.7); Neutrophils # 4.7 10*3/uL (1.4-7.4); Neutrophils % 60.9 % (38.7-73.9); Platelet Count 164 T/CUMM (130-400); Red Blood Count 3.62 MC/CUMM (3.8-5.5); Red Cell Distribution Width 14.3 % (9.3-17.3); White Blood Count 7.7 T/CUMM (4-12)
[2017-05-08 07:57] LABS: Calcium 8.4 MG/DL (8.5-10.1); Magnesium 2.3 MG/DL (1.8-2.4); Osmolality,Calculated 290.1 MOS/KG (273-304); Potassium 4.4 MMOL/L (3.5-5.1)
[2017-05-08] MEDS: SUCROFERRIC OXYHYDROXIDE 1500 MG PO SCH ×3 (08:55→16:49)
[2017-05-08] MEDS: hydrALAZINE 25 MG TABLET PO SCH ×4 (08:55→20:42)
[2017-05-08] MEDS: ASPIRIN EC 81 MG TABLET PO SCH (08:55)
[2017-05-08] MEDS: CARVEDILOL 25 MG TABLET PO SCH ×2 (08:56→20:41)
[2017-05-08] MEDS: amLODIPine 10 MG TABLET PO SCH ×2 (08:56→16:49)
[2017-05-08] MEDS: ISOSORBIDE DINITRATE 10 MG TABLET PO SCH ×4 (08:56→20:41)
[2017-05-08] MEDS: ENOXAPARIN 30 MG/0.3 ML SYRINGE SUBCUT SCH (16:49)
[2017-05-09] MEDS: SUCROFERRIC OXYHYDROXIDE 1500 MG PO SCH ×2 (08:48→13:31)
[2017-05-09] MEDS: ISOSORBIDE DINITRATE 10 MG TABLET PO SCH (08:48)
[2017-05-09] MEDS: CARVEDILOL 25 MG TABLET PO SCH (08:49)
[2017-05-09] MEDS: amLODIPine 10 MG TABLET PO SCH (08:49)
[2017-05-09] MEDS: ASPIRIN EC 81 MG TABLET PO SCH (08:49)
[2017-05-09] MEDS: ACETAMINOPHEN 325 MG TABLET PO PRN (08:49)
[2017-05-09] MEDS: hydrALAZINE 25 MG TABLET PO SCH (08:53)
[2017-05-09 12:32] VITALS: BP 97/59
== END 2017-05-09 13:50 | disposition home or self-care (01) | DRG 313 ==
LOC: N.ED 12:14 → N.EDINP 14:35 → N.5E 17:31
PROVIDERS: ADMIT Internal Medicine Cardiovascular Disease; ATTEND Internal Medicine Cardiovascular Disease

== ENCOUNTER 2017-09-12 16:22 | Inpatient (IN) ==
[2017-09-12 18:05] LABS: Basophils # 0.1 10*3/uL (0.0-0.2); Basophils % 0.4 % (0.0-0.8); Eosinophils # 0.3 10*3/uL (0.0-0.87); Eosinophils % 2.2 % (0.00-10.9); Hematocrit 38.2 VOL% (35.7-47.0); Hemoglobin 11.6 GM/DL (12.0-16.0); Immature Granulocytes % 1.2 %; Immature Granulocytes Absolute 0.15 #; Lymphocytes # 2.3 10*3/uL (1.4-4.0); Lymphocytes % 19.1 % (21.3-54.2); Mean Corpuscular HGB Conc 30.4 GM/DL (32-36); Mean Corpuscular Hemoglobin 28 PG (27-34); Mean Corpuscular Volume 93.4 FL (87-102); Mean Platelet Volume 12.2 FL (9.6-12.0); Monocytes # 1.3 10*3/uL (0.11-0.8); Monocytes % 10.5 % (1.7-12.7); Neutrophils # 8.1 10*3/uL (1.4-7.4); Neutrophils % 66.6 % (38.7-73.9); Platelet Count 214 T/CUMM (130-400); Red Blood Count 4.09 MC/CUMM (3.8-5.5); Red Cell Distribution Width 14.5 % (9.3-17.3); White Blood Count 12.2 T/CUMM (4-12)
[2017-09-12 18:19] LABS: Apearance,Urine CLOUDY (Clear); Bacteria,Urine Occasional /HPF (Few); Bilirubin,Urine Negative (Negative); Blood, Urine Moderate mg/dL (Negative); Glucose,Urine (UA) Negative (Negative); Ketones,Urine Negative (Negative); Nitrite,Urine Negative (Negative); Protein,Urine 30 MG/DL; RBC,Urine 17 /HPF (0-4); Squamous Epithelial Cell,Urine Many /HPF (0-10); Urine Color Yellow (Yellow); Urine Specific Gravity 1.012 (1.001-1.035); Urine Urobilinogen < 2.0 EU/DL (0.2-1.0); WBC,Urine 94 /HPF (0-6)
[2017-09-12 18:23] LABS: Alanine Aminotransferase 12 U/L (13-56); Alkaline Phosphatase 74 U/L (45-117); Amylase 56 U/L (25-115); Aspartate Amino Transferase 13 U/L (0-37); Bilirubin,Total < 0.39 MG/DL (0.2-1.0); Blood Urea Nitrogen 68 MG/DL (7-18); Calcium 8.8 MG/DL (8.5-10.1); Glucose 116 MG/DL (74-106); Osmolality,Calculated 295.7 MOS/KG (273-304); Potassium 5.2 MMOL/L (3.5-5.1); Sodium 138 MMOL/L (136-145); Total Protein 7.3 G/DL (6.4-8.3)
[2017-09-12 18:24] LABS: Troponin I Only 0.035 NG/ML (0.00-0.045)
[2017-09-12] MEDS ORDERED: MORPHINE 2 MG/1 ML SYRINGE IV STA (20:35)
[2017-09-12] MEDS ORDERED: MORPHINE 2 MG/1 ML SYRINGE ONE (20:37)
[2017-09-12] MEDS ORDERED: FUROSEMIDE INJ 200 MG in SODIUM CHLORIDE 0.9% 50 ML IV STA (20:48)
[2017-09-12] MEDS ORDERED: ACETAMINOPHEN 325 MG TABLET PO PRN (21:40)
[2017-09-12] MEDS ORDERED: LEVOFLOXACIN INJ 750 MG in PREMIX 1 EACH IV ONE (21:40)
[2017-09-12] MEDS ORDERED: VANCOMYCIN INJ 1,750 MG in SODIUM CHLORIDE 0.9% 250 ML IV STA (21:44)
[2017-09-12] MEDS: ENOXAPARIN 30 MG/0.3 ML SYRINGE SUBCUT SCH (23:10)
[2017-09-12] MEDS: ONDANSETRON 4 MG/2 ML VIAL IV PRN (23:11)
[2017-09-13] MEDS: SODIUM BICARB INJ 100 MEQ in DEXTROSE 5% 1,000 ML IV SCH (00:14)
[2017-09-13] MEDS: ONDANSETRON 4 MG/2 ML VIAL IV PRN ×4 (05:09→23:48)
[2017-09-13 05:41] LABS: Basophils # 0.1 10*3/uL (0.0-0.2); Basophils % 0.7 % (0.0-0.8); Eosinophils # 0.2 10*3/uL (0.0-0.87); Eosinophils % 1.8 % (0.00-10.9); Hematocrit 35.6 VOL% (35.7-47.0); Hemoglobin 11.2 GM/DL (12.0-16.0); Immature Granulocytes Absolute 0.12 #; Lymphocytes # 2.1 10*3/uL (1.4-4.0); Lymphocytes % 17.7 % (21.3-54.2); Mean Corpuscular HGB Conc 31.5 GM/DL (32-36); Mean Corpuscular Hemoglobin 29 PG (27-34); Monocytes # 1.1 10*3/uL (0.11-0.8); Monocytes % 8.8 % (1.7-12.7); Neutrophils # 8.5 10*3/uL (1.4-7.4); Platelet Count 169 T/CUMM (130-400); Red Blood Count 3.87 MC/CUMM (3.8-5.5); Red Cell Distribution Width 14.5 % (9.3-17.3); White Blood Count 12.1 T/CUMM (4-12)
[2017-09-13 06:18] LABS: Calcium 8.7 MG/DL (8.5-10.1); Potassium 5.7 MMOL/L (3.5-5.1); Troponin I Only 0.024 NG/ML (0.00-0.045)
[2017-09-13 18:05] LABS: Hepatitis B Surface Ag Quant 0.17 Index; Hepatitis B Surface Ag Result Negative (Negative)
[2017-09-13] MEDS: ENOXAPARIN 30 MG/0.3 ML SYRINGE SUBCUT SCH (21:53)
[2017-09-14] MEDS: SODIUM BICARB INJ 100 MEQ in DEXTROSE 5% 1,000 ML IV SCH (02:28)
[2017-09-14 05:24] LABS: Basophils # 0.1 10*3/uL (0.0-0.2); Basophils % 0.3 % (0.0-0.8); Eosinophils # 0.1 10*3/uL (0.0-0.87); Eosinophils % 0.3 % (0.00-10.9); Hematocrit 35.6 VOL% (35.7-47.0); Hemoglobin 11.4 GM/DL (12.0-16.0); Immature Granulocytes % 1.1 %; Immature Granulocytes Absolute 0.17 #; Lymphocytes # 1.5 10*3/uL (1.4-4.0); Lymphocytes % 9.8 % (21.3-54.2); Mean Corpuscular Hemoglobin 29 PG (27-34); Mean Corpuscular Volume 90.6 FL (87-102); Mean Platelet Volume 12.7 FL (9.6-12.0); Monocytes # 1.2 10*3/uL (0.11-0.8); Monocytes % 7.7 % (1.7-12.7); NRBC # 0.02 10*3/uL; Neutrophils # 12.6 10*3/uL (1.4-7.4); Neutrophils % 80.8 % (38.7-73.9); Platelet Count 166 T/CUMM (130-400); Red Blood Count 3.93 MC/CUMM (3.8-5.5); Red Cell Distribution Width 14.3 % (9.3-17.3); White Blood Count 15.6 T/CUMM (4-12)
[2017-09-14 05:48] LABS: Osmolality,Calculated 287.1 MOS/KG (273-304); Potassium 4.8 MMOL/L (3.5-5.1)
[2017-09-14] MEDS: ONDANSETRON 4 MG/2 ML VIAL IV PRN (09:56)
[2017-09-14] MEDS: CARVEDILOL 25 MG TABLET PO SCH ×2 (10:04→21:20)
[2017-09-14] MEDS: amLODIPine 10 MG TABLET PO SCH (10:05)
[2017-09-14] MEDS: MORPHINE 2 MG/1 ML SYRINGE IV PRN (14:18)
[2017-09-14] MEDS ORDERED: LEVOFLOXACIN INJ 500 MG in PREMIX 1 EACH IV SCH (21:00)
[2017-09-14] MEDS: ENOXAPARIN 30 MG/0.3 ML SYRINGE SUBCUT SCH (21:21)
[2017-09-15 05:49] LABS: Basophils # 0.1 10*3/uL (0.0-0.2); Basophils % 0.6 % (0.0-0.8); Eosinophils # 0.1 10*3/uL (0.0-0.87); Eosinophils % 0.7 % (0.00-10.9); Hematocrit 35.4 VOL% (35.7-47.0); Hemoglobin 10.7 GM/DL (12.0-16.0); Immature Granulocytes % 1.6 %; Immature Granulocytes Absolute 0.24 #; Lymphocytes # 2.1 10*3/uL (1.4-4.0); Lymphocytes % 13.8 % (21.3-54.2); Mean Corpuscular HGB Conc 30.2 GM/DL (32-36); Mean Corpuscular Hemoglobin 28 PG (27-34); Mean Corpuscular Volume 93.2 FL (87-102); Mean Platelet Volume 13.2 FL (9.6-12.0); Monocytes # 1.7 10*3/uL (0.11-0.8); Monocytes % 11.5 % (1.7-12.7); NRBC # 0.09 10*3/uL; Neutrophils # 10.8 10*3/uL (1.4-7.4); Neutrophils % 71.8 % (38.7-73.9); Platelet Count 121 T/CUMM (130-400); Red Cell Distribution Width 14.6 % (9.3-17.3)
[2017-09-15 06:13] LABS: Hypochromasia 1+; Microcytosis 1+
[2017-09-15 06:19] LABS: Osmolality,Calculated 278.1 MOS/KG (273-304); Potassium 4.6 MMOL/L (3.5-5.1)
[2017-09-15] MEDS: amLODIPine 10 MG TABLET PO SCH (09:53)
[2017-09-15] MEDS: CARVEDILOL 25 MG TABLET PO SCH ×2 (09:53→20:50)
[2017-09-15] MEDS: ONDANSETRON 4 MG/2 ML VIAL IV PRN (10:17)
[2017-09-15] MEDS: MORPHINE 2 MG/1 ML SYRINGE IV PRN (10:19)
[2017-09-15] MEDS: ALBUTEROL/IPRATROPIUM 3 ML NEB RESP TX SCH ×4 (10:51→23:25)
[2017-09-15 13:32] LABS: Free T4 (Free Thyroxine) 1.36 NG/DL (0.76-1.46); Thyroid Stimulating Hormone 1.24 uIU/ml (0.358-3.74)
[2017-09-15] MEDS: metroNIDAZOLE INJ 500 MG in PREMIX 1 EACH IV SCH ×2 (15:42→22:33)
[2017-09-15] MEDS ORDERED: VANCOMYCIN INJ 1,000 MG in SODIUM CHLORIDE 0.9% 250 ML IV ONE (16:30)
[2017-09-15] MEDS ORDERED: VANCOMYCIN INJ 1,750 MG in SODIUM CHLORIDE 0.9% 500 ML IV ONE (18:00)
[2017-09-15] MEDS: ENOXAPARIN 30 MG/0.3 ML SYRINGE SUBCUT SCH (20:50)
[2017-09-16] MEDS: ALBUTEROL/IPRATROPIUM 3 ML NEB RESP TX SCH ×5 (03:00→19:45)
[2017-09-16] MEDS: metroNIDAZOLE INJ 500 MG in PREMIX 1 EACH IV SCH (05:24)
[2017-09-16] MEDS: CARVEDILOL 25 MG TABLET PO SCH ×2 (09:00→21:56)
[2017-09-16 09:17] LABS: Basophils # 0.1 10*3/uL (0.0-0.2); Basophils % 0.4 % (0.0-0.8); Eosinophils # 0.1 10*3/uL (0.0-0.87); Hematocrit 32.8 VOL% (35.7-47.0); Hemoglobin 10.5 GM/DL (12.0-16.0); Immature Granulocytes % 2.4 %; Immature Granulocytes Absolute 0.32 #; Lymphocytes # 1.6 10*3/uL (1.4-4.0); Lymphocytes % 11.9 % (21.3-54.2); Mean Corpuscular Hemoglobin 29 PG (27-34); Mean Corpuscular Volume 91.4 FL (87-102); Mean Platelet Volume 11.4 FL (9.6-12.0); Monocytes # 1.2 10*3/uL (0.11-0.8); Monocytes % 9.2 % (1.7-12.7); NRBC # 0.18 10*3/uL; Neutrophils % 75.1 % (38.7-73.9); Platelet Count 183 T/CUMM (130-400); Red Blood Count 3.59 MC/CUMM (3.8-5.5); Red Cell Distribution Width 14.6 % (9.3-17.3); White Blood Count 13.3 T/CUMM (4-12)
[2017-09-16 09:53] LABS: Alanine Aminotransferase 14 U/L (13-56); Albumin 3.3 G/DL (3.4-5.0); Alkaline Phosphatase 78 U/L (45-117); Aspartate Amino Transferase 6 U/L (0-37); Bilirubin,Total < 0.39 MG/DL (0.2-1.0); Blood Urea Nitrogen 49 MG/DL (7-18); Calcium 9.1 MG/DL (8.5-10.1); Glucose 143 MG/DL (74-106); Osmolality,Calculated 276.7 MOS/KG (273-304); Potassium 4.6 MMOL/L (3.5-5.1); Sodium 131 MMOL/L (136-145); Total Protein 6.9 G/DL (6.4-8.3)
[2017-09-16] MEDS ORDERED: ALTEPLASE 2 MG VIAL IV ONE (11:00)
[2017-09-16] MEDS ORDERED: VANCOMYCIN INJ 750 MG in SODIUM CHLORIDE 0.9% 250 ML IV ONE (12:00)
[2017-09-16 15:59] LABS: ABG PCO2 41.1 MM HG (35-48); ABG PH 7.413 (7.35-7.45)
[2017-09-16 16:00] LABS: ABG HCO3 25.6 MMOL/L (20-26); ABG Oxygen Saturation 92.4 % (95-100); ABG PO2 68.5 MM HG (80-95); ABG TCO2 26.9 MMOL/L (23-27)
[2017-09-16] MEDS: amLODIPine 10 MG TABLET PO SCH (17:20)
[2017-09-16] MEDS: PANTOPRAZOLE 40 MG TABLET PO SCH (17:21)
[2017-09-16] MEDS ORDERED: ceFAZolin 2,000 MG in PREMIX 1 EACH IV SCH (18:00)
[2017-09-16] MEDS ORDERED: VANCOMYCIN INJ 750 MG in SODIUM CHLORIDE 0.9% 250 ML IV PRN (18:00)
[2017-09-16] MEDS: ONDANSETRON 4 MG/2 ML VIAL IV PRN (22:01)
[2017-09-17] MEDS: ALBUTEROL/IPRATROPIUM 3 ML NEB RESP TX SCH ×7 (00:35→23:48)
[2017-09-17 06:53] LABS: Basophils # 0.1 10*3/uL (0.0-0.2); Basophils % 0.6 % (0.0-0.8); Eosinophils # 0.1 10*3/uL (0.0-0.87); Eosinophils % 0.9 % (0.00-10.9); Hematocrit 33.4 VOL% (35.7-47.0); Hemoglobin 10.4 GM/DL (12.0-16.0); Immature Granulocytes % 3.5 %; Immature Granulocytes Absolute 0.45 #; Lymphocytes # 1.5 10*3/uL (1.4-4.0); Lymphocytes % 11.7 % (21.3-54.2); Mean Corpuscular HGB Conc 31.1 GM/DL (32-36); Mean Corpuscular Hemoglobin 29 PG (27-34); Mean Corpuscular Volume 91.8 FL (87-102); Mean Platelet Volume 11.6 FL (9.6-12.0); Monocytes % 7.9 % (1.7-12.7); NRBC # 0.15 10*3/uL; Neutrophils # 9.7 10*3/uL (1.4-7.4); Neutrophils % 75.4 % (38.7-73.9); Platelet Count 175 T/CUMM (130-400); Red Blood Count 3.64 MC/CUMM (3.8-5.5); Red Cell Distribution Width 14.7 % (9.3-17.3); White Blood Count 12.9 T/CUMM (4-12)
[2017-09-17 07:26] LABS: Calcium 8.8 MG/DL (8.5-10.1); Osmolality,Calculated 275.4 MOS/KG (273-304); Potassium 4.3 MMOL/L (3.5-5.1)
[2017-09-17] MEDS: CARVEDILOL 25 MG TABLET PO SCH ×2 (09:00→21:11)
[2017-09-17] MEDS ORDERED: VANCOMYCIN INJ 750 MG in SODIUM CHLORIDE 0.9% 250 ML IV PRN (16:49)
[2017-09-17] MEDS: amLODIPine 10 MG TABLET PO SCH (17:16)
[2017-09-17] MEDS: PANTOPRAZOLE 40 MG TABLET PO SCH (17:17)
[2017-09-17] MEDS: METOCLOPRAMIDE 10 MG/10 ML UDCUP PO SCH ×2 (17:17→21:11)
[2017-09-17] MEDS: ONDANSETRON 4 MG/2 ML VIAL IV PRN (18:33)
[2017-09-18] MEDS: ALBUTEROL/IPRATROPIUM 3 ML NEB RESP TX SCH ×3 (03:21→14:32)
[2017-09-18 07:33] LABS: Basophils # 0.1 10*3/uL (0.0-0.2); Basophils % 0.6 % (0.0-0.8); Eosinophils # 0.1 10*3/uL (0.0-0.87); Eosinophils % 0.8 % (0.00-10.9); Hematocrit 30.9 VOL% (35.7-47.0); Hemoglobin 9.7 GM/DL (12.0-16.0); Immature Granulocytes % 4.6 %; Immature Granulocytes Absolute 0.57 #; Lymphocytes # 1.5 10*3/uL (1.4-4.0); Lymphocytes % 12.1 % (21.3-54.2); Mean Corpuscular HGB Conc 31.4 GM/DL (32-36); Mean Corpuscular Hemoglobin 29 PG (27-34); Mean Corpuscular Volume 91.7 FL (87-102); Mean Platelet Volume 11.4 FL (9.6-12.0); Monocytes # 1.1 10*3/uL (0.11-0.8); Monocytes % 9.2 % (1.7-12.7); NRBC # 0.18 10*3/uL; Neutrophils % 72.7 % (38.7-73.9); Platelet Count 166 T/CUMM (130-400); Red Blood Count 3.37 MC/CUMM (3.8-5.5); Red Cell Distribution Width 14.9 % (9.3-17.3); White Blood Count 12.4 T/CUMM (4-12)
[2017-09-18 07:54] LABS: Band Neutrophils 1 % (0-10); Eosinophils 2 % (0-10); Hypochromasia 1+; Lymphocytes 15 % (20-55); Nucleated Red Blood Cells 1 (0-5); Ovalocytes Slight; Platelet Estimate Normal; Segmented Neutrophils 75 % (50-85); Total Cells Counted 100
[2017-09-18 07:55] LABS: Giant Platelets Few; Microcytosis Slight
[2017-09-18 07:57] LABS: Calcium 8.7 MG/DL (8.5-10.1); Osmolality,Calculated 274.8 MOS/KG (273-304); Potassium 4.8 MMOL/L (3.5-5.1)
[2017-09-18] MEDS: METOCLOPRAMIDE 10 MG/10 ML UDCUP PO SCH ×2 (08:30→13:58)
[2017-09-18] MEDS: CARVEDILOL 25 MG TABLET PO SCH (08:30)
[2017-09-18] MEDS: amLODIPine 10 MG TABLET PO SCH (08:30)
[2017-09-18] MEDS: PANTOPRAZOLE 40 MG TABLET PO SCH (08:30)
[2017-09-18] MEDS ORDERED: VANCOMYCIN INJ 500 MG in SODIUM CHLORIDE 0.9% 100 ML IV PRN (09:30)
[2017-09-18] MEDS: ONDANSETRON 4 MG/2 ML VIAL IV PRN (10:37)
[2017-09-18] MEDS ORDERED: PROPOFOL 200 MG/20 ML VIAL IV ONE (11:33)
[2017-09-18] MEDS ORDERED: LIDOCAINE 100 MG/5 ML SYRINGE ONE (11:33)
[2017-09-18] MEDS ORDERED: LEVOFLOXACIN 500 MG TABLET PO SCH (12:00)
[2017-09-18] MEDS: MORPHINE 2 MG/1 ML SYRINGE IV PRN (13:34)
[2017-09-18 13:41] VITALS: BP 132/76
[2017-09-18] MEDS ORDERED: VANCOMYCIN INJ 500 MG in SODIUM CHLORIDE 0.9% 100 ML IV ONE (18:00)
== END 2017-09-18 16:29 | disposition hospice, home (50) | DRG 689 ==
LOC: N.ED 16:22 → SUATTDRO 19:48 → N.EDINP 19:48 → N.2E 20:40 → N.3E 20:50
PROVIDERS: ADMIT Internal Medicine; ATTEND Internal Medicine